=== PATIENT | female | born 1960 | race Caucasian/White ===

== ENCOUNTER → 2016-04-08 | Outpatient (CLI) | payer BC ==
[~2016-04-08] MED LIST: ALBU6.7H INH; ASPI325T PO; ATEN50TA PO; BIOT25008 PO; CHOL100092; CLOP75TA PO; FENO200C PO; FISH1CAP59 PO; FURO40TA5 PO; GABA-338 PO; GUAI600T PO; HYDR-4246 PO; HYDR115S2 PO; INSU100I3 SQ; INSU100V12 SQ; IPRA3AMP AEROSOL; LOSA100T2 PO; MAGN500C4 PO; METF500T4 PO; POTA10CA37 PO; PRED20TA PO; ROSU20TA PO; ST JOHN S WORT PO; ZINC50TA64 PO
== END ==
LOC: NWCC 10:42
PROVIDERS: ATTEND Surgery
DX: E11.621 Type 2 diabetes mellitus with foot ulcer (principal); L97.522 Non-pressure chronic ulcer of other part of left foot with fat layer exposed; L97.412 Non-pressure chronic ulcer of right heel and midfoot with fat layer exposed; E11.42 Type 2 diabetes mellitus with diabetic polyneuropathy
CPT/HCPCS: 11042

== ENCOUNTER → 2016-04-22 | Outpatient (CLI) | payer BC ==
[~2016-04-22] MED LIST changes: +SALINE FLUSH 10ml SYRINGE IVF ONE
== END ==
LOC: NWCC 09:54
PROVIDERS: ATTEND Internal Medicine
DX: E11.621 Type 2 diabetes mellitus with foot ulcer (principal); L97.522 Non-pressure chronic ulcer of other part of left foot with fat layer exposed; L97.412 Non-pressure chronic ulcer of right heel and midfoot with fat layer exposed
CPT/HCPCS: 11042; A6021

== ENCOUNTER → 2016-05-06 | Outpatient (CLI) | payer BC ==
[~2016-05-06] MED LIST changes: -SALINE FLUSH 10ml SYRINGE IVF ONE
== END ==
LOC: NWCC 10:33
PROVIDERS: ATTEND Internal Medicine
DX: E11.621 Type 2 diabetes mellitus with foot ulcer (principal); L97.522 Non-pressure chronic ulcer of other part of left foot with fat layer exposed; L97.512 Non-pressure chronic ulcer of other part of right foot with fat layer exposed; L97.412 Non-pressure chronic ulcer of right heel and midfoot with fat layer exposed
CPT/HCPCS: 11042

== ENCOUNTER → 2016-05-19 | Outpatient (CLI) | payer BC | LOC: NWCC 08:53 | PROVIDERS: ATTEND Internal Medicine | DX: E11.621 Type 2 diabetes mellitus with foot ulcer (principal); L97.522 Non-pressure chronic ulcer of other part of left foot with fat layer exposed; L97.412 Non-pressure chronic ulcer of right heel and midfoot with fat layer exposed; L97.512 Non-pressure chronic ulcer of other part of right foot with fat layer exposed; E11.42 Type 2 diabetes mellitus with diabetic polyneuropathy; G60.9 Hereditary and idiopathic neuropathy, unspecified | CPT/HCPCS: 11042; 99213; A6021; A6209 ==

== ENCOUNTER → 2016-06-03 | Outpatient (CLI) | payer BC ==
[~2016-06-03] MED LIST changes: +CALMOSEPTINE OINTMENT 3.5 G PACKET TOP ONE; +SALINE FLUSH 10ml SYRINGE IVF ONE
== END ==
LOC: NWCC 10:33
PROVIDERS: ATTEND Internal Medicine
DX: E11.621 Type 2 diabetes mellitus with foot ulcer (principal); L97.412 Non-pressure chronic ulcer of right heel and midfoot with fat layer exposed; L97.529 Non-pressure chronic ulcer of other part of left foot with unspecified severity; B96.89 Other specified bacterial agents as the cause of diseases classified elsewhere; E11.42 Type 2 diabetes mellitus with diabetic polyneuropathy; G60.9 Hereditary and idiopathic neuropathy, unspecified
CPT/HCPCS: 11042; 87070; 87075; 87076; 87147; 87181; 87205; A6209